=== PATIENT | male | born 1995 | race Caucasian/White ===

== ENCOUNTER 2024-12-11 12:01 | Emergency (ER) | payer MEDICAID, SELFPAY ==
[2024-12-11 12:09] VITALS: BP 115/74; PULSE 74; RESP 21; TEMP 36.7; O2SAT 100
--- NOTE | 2024-12-11 12:17 | XR_ITS ---
Examination: Lumbar spine 3 views Technique one AP lateral coned lateral lower lumbar spine 3 views Exam date and time: December 11, 2024 1223 hours INDICATIONS: Lower back pain beginning 4 days ago. FINDINGS: Lumbar dextroscoliosis 8 degrees No lumbar fracture Mild disc narrowing L4-L5, L5-S1 No spondylolisthesis IMPRESSION: Mild disc narrowing L4-L5, L5-S1
--- NOTE | 2024-12-11 12:19 | EDNOTE_ITS ---
ED Back Injury Pain RME/HPI General Chief Complaint: Back Pain/Injury Stated Complaint: BACK PAIN Time Seen by Provider: 12/11/24 12:15 Arrival date/time: 12/11/24 12:01 29 year old male present to emergency room via EMS with c/o of low back pain for 4 days. per EMS report [place] and unable to get up due to back pain, possible injury while playing soccer. No fevers No unexplained weight loss of night sweats No recent surgeries or recurrent bacterial infections Patient is not immunocompromised Denies any new focal neurological deficits or new motor weakness Denies bowel or bladder incontinence or saddle anesthesia LOCATION: diffuse low back SEVERITY: Symptoms are described as being severe with limitations on activities of daily living QUALITY: Symptoms are described as being dull or achy CONTEXT: The patient is unable to identify any inciting events. DURATION/TIMING: The symptoms started approximately 4 day ago and have been constant this then. ASSOCIATED SYMPTOMS: The patient is unable to identify any other associated symptoms. MODIFYING FACTORS: The patient is unable to identify any alleviating or aggravating symptoms. PERTINENT ROS: no fevers, denies any ripping or tearing sensations, no associated abdominal pain, no focal neurological deficits and denies any saddle anesthesia, and no bowel or bladder incontinence REVIEW OF SYSTEMS: See History of Present Illness - with the exception of those mentioned in the history of present illness, all other systems reviewed and reported as negative GENERAL: In general the patient is awake, interactive, in an emergency department rney. moderate pain HEAD/EYES/EARS/NOSE/THROAT: normo-cephalic, atraumatic, mucus membranes are moist, anicteric, palpebral conjunctiva is pink, trachea is midline. CARDIOVASCULAR: regular rate and regular rhythm, no murmurs, heart sounds are not distant, strong pulses in all four extremities that are equal and symmetric bilateral upper and lower extremities, normal capillary refill. CHEST/PULMONARY: normal chest rise and fall, good air movement, clear to auscultation bilaterally, normal inspiratory to expiratory ratios without evidence of respiratory distress. NECK: No midline/Paraspinal tenderness, no step off ROM/Strenght intact No Kernig and bruzinski sign. No trauma ABDOMEN: soft, not tender, no masses appreciated BACK: low back tenderness, no midline tenderness no step off normal range of motion without pain. NEUROLOGICAL: cranio-facial features are symmetric, moves all four extremities equally without obvious limitations or weakness. EXTREMITY: no tenderness to palpation over the long bones or large joints of the bilateral upper and lower extremities, no joint swelling, no joint erythema, no signs of trauma, no unilateral leg swelling and no peripheral edema. SKIN: warm, dry, well-perfused, no jaundice, no rash, no telangiectasias or petechia. PSYCH: calm, cooperative, no evidence of psychosis or agitation Related Data Previous Rx's ?Medication ?Instructions ?Recorded cyclobenzaprine 5 mg tablet 5 mg PO TID PRN muscle spa sm #30 12/11/24 tabs ibuprofen 800 mg tablet (IBU) 800 mg PO TID PRN fever or pain 12/11/24 #30 tabs Allergies Allergy/AdvReac Type Severity Reaction Status Date / Time No Known Allergies Allergy Verified 12/11/24 13:05 Course Course Course Narrative: basic labs , Xray, IV fluids, morphine, zofran toradol and recheck Quality Measures none Orders Category Date Time Status IV [Insert IV] STAT Care 12/11/24 12:16 Active Diet Regular Diet 12/11/24 Dinner Active XR lumbar spine 2-3V Stat Exams 12/11/24 13:32 Completed Alcohol, Blood Medical Stat Lab 12/11/24 12:31 Completed CBC Stat Lab 12/11/24 12:31 Completed CK [Creatine Kinase] Stat Lab 12/11/24 12:31 Completed CMP [Comprehensive Metabolic Panel] Stat Lab 12/11/24 12:31 Completed Drug Screen,Urine Stat Lab 12/11/24 12:17 Ordered Lactic Acid [Lactate (Lactic Acid)] Stat Lab 12/11/24 12:31 Completed Mag [Magnesium] Stat Lab 12/11/24 12:31 Completed UA [Urinalysis] Stat Lab 12/11/24 12:20 Ordered Ketorolac Inj [Toradol Inj] Med 12/11/24 12:19 Discontinued 30 mg IVP X1 ONE Lidocaine 5% Patch Med 12/11/24 13:43 Discontinued 1 patch TOP X1 ONE Morphine Inj Med 12/11/24 12:16 Discontinued 4 mg IVP X1 ONE Ondansetron Inj [Zofran Inj] Med 12/11/24 12:16 Discontinued 4 mg IV X1 ONE Sodium Chloride 0.9% 1000 ml [Ns] 1,000 ml Med 12/11/24 12:20 Discontinued IV 999 mls/hr Reevaluation(s) Reevaluation #1: pain has improved with pain medication review of labs and xray no acute findings Reevaluation #2: pt is feeling better. Vital Signs Vital signs: Vital Signs Temperature 98.1 F 12/11/24 12:09 Pulse Rate 74 12/11/24 12:09 Respiratory Rate 21 H 12/11/24 12:09 Blood Pressure 115/74 12/11/24 12:09 Pulse Oximetry (%) 100 12/11/24 12:09 Oxygen Delivery Method Room Air 12/11/24 12:09 Back Pain / Injury MDM Narrative MDM Narrative:: Patient is admitted to the Emergency Department and evaluated. Patient appears well, is non-toxic and well hydrated. Patient appears to have an uncomplicated lumbar lumbar strain. Pt. has no neurological deficits. No bowel or bladder dysfunction. Denies numbness in saddle region. Normal gait. No signs of cauda equina. Patient has no malignancy or other comorbidities. No signs of epidural abscess. No abdominal pain or pulsatile mass and has good peripheral pulses. I do not suspect AAA. Patient is given supportive home care instructions for rest, ice, use of NSAIDS, RX meds if indicated. Patient instructed to return to ER for any symptoms that are concerning to them. Patient data External records reviewed:: [facility] previous records Clinical information provided by:: patient Social determinants that could affect healthcare access:: substance use Patient has the following chronic illnesses:: n/a How is presenting disease/condition affected by chronic disease/condition?: no chronic disease Evaluation data The following diagnostics were reviewed and interpreted by me:: lab results, radiology exam(s) and EKG tracing(s) Lab and/or radiology exams considered but not ordered:: n/a Interpretation Summary: cbcwnl cmp wnl ck wnl lactic wnl trop wnl mg wnl urine drug screen xray: Lumbar dextroscoliosis 8 degrees No lumbar fracture Mild disc narrowing L4-L5, L5-S1 No spondylolisthesis IMPRESSION: Mild disc narrowing L4-L5, L5-S1 Medications / Prescriptions Medications or Prescriptions considered but not ordered:: n/a Medication administrations:: Medication Administration History Discontinued Medications Sodium Chloride (Ns) 1,000 mls @ 999 mls/hr IV .Q1H1M ONE Stop: 12/11/24 13:20 Last Admin: 12/11/24 13:02 Dose: 999 mls/hr Documented By: VIPUL Ketorolac Tromethamine (Ketorolac Inj 30 Mg/Ml Vial) 30 mg IVP X1 ONE Stop: 12/11/24 12:20 Last Admin: 12/11/24 13:03 Dose: 30 mg Documented By: VIPUL Lidocaine (Lidocaine 5% 1 Patch) 1 patch TOP X1 ONE Stop: 12/11/24 13:44 Last Admin: 12/11/24 14:38 Dose: 1 patch Documented By: RADHA Morphine Sulfate (Morphine Sulf Inj 10 Mg/Ml Vial) 4 mg IVP X1 ONE Stop: 12/11/24 12:17 Last Admin: 12/11/24 13:04 Dose: 4 mg Documented By: VIPUL Ondansetron HCl (Ondansetron Inj 2 Mg/Ml Inj 2 Ml) 4 mg IV X1 ONE; Protocol Stop: 12/11/24 12:17 Last Admin: 12/11/24 13:03 Dose: 4 mg Documented By: VIPUL as stated above Consultations Consultation(s) initiated? (list below): No Diagnosis Differential diagnosis back pain/injury: lumbar radiculopathy, sciatica, strain of lumbar region, renal colic, pyelonephritis, discitis and other (strain/sprain ) Most likely diagnosis given after review of the tests above:: lumbar strain Admission Indicated Admission indicated?: not indicated Admission Request Was there a request for admission?: No Disposition Plan Disposition Plan: Discharge Discharge Attestation Discharge Attestation: The patient and all family members were given an opportunity to ask questions and understood the discharge instructions. Discharge instructions specifically effects, indications for sooner follow up or return to the emergency department, and the expected course of current diagnosis. Patient condition: Stable Discharge Plan Plan Patient Disposition: HOME (Self Care) Health Concerns: Follow with PMD as directed Take tylenol or motrin as need Return to ED if sx worsen Prescriptions/Referrals Prescriptions/Med Rec: New cyclobenzaprine 5 mg tablet 5 mg PO TID PRN (Reason: muscle spasm) Qty: 30 0RF ibuprofen [IBU] 800 mg tablet 800 mg PO TID PRN (Reason: fever or pain) Qty: 30 0RF Referrals: No Primary/Family,Physician [Primary Care Provider] - In 1 week Problem List Clinical Impression: Strain of lumbar region Patient/Caregiver Discharge Instructions Education Materials: Self-Care for Strains and Sprains Print Language: Citizen Of [place] Stand Alone Forms: [employer] Award Info., Patient Portal Info Letter
--- NOTE | 2024-12-11 12:38 | PC.NURSE ---
Patient biba for back pain x4days, [place] team assisted in taking him out as patient was unable to ambulate per EMS. Patient is alert and oriented nonambulatory 2nd to back pain. Patient updated on plan of care and call light placed within reach.
[2024-12-11 12:46] LABS: Basophils % (Auto) 0 % (0-2.5); Eosinophils % (Auto) 0 % (0-10); Hematocrit 38.6 % (41.0-53.0); Hemoglobin 14.5 g/dL (13.5-16.0); Immature Granulocytes % (Auto) 0 % (0-0); Immature Granulocytes Auto 0.02 Thou/mm3 (0.00-0.00); Lymphocytes # (Auto) 0.8 Thou/mm3 (1.0-4.8); Lymphocytes % (Auto) 10 % (10-50); Mean Corpuscular HGB Conc 37.6 g/dl (31.0-37.0); Mean Corpuscular Hemoglobin 31.7 pg (25.0-35.0); Mean Corpuscular Volume 85 fL (80-100); Monocytes # (Auto) 0.5 Thou/mm3 (0.0-0.8); Monocytes % (Auto) 7 % (0-12); Neutrophils # (Auto) 6.7 Thou/mm3 (1.8-7.7); Neutrophils % (Auto) 83 % (37-80); Nucleated Red Blood Cell % 0 /100 WBC (0); Platelet Count 171 Thou/mm3 (140-440); RDW Standard Deviation 36.2 fL (35.1-43.9); Red Blood Count 4.57 Miln/mm3 (4.50-5.90); White Blood Count 8.1 Thou/mm3 (3.8-10.6)
[2024-12-11 12:58] VITALS: BMI 27.2
[2024-12-11] MEDS: SODIUM CHLORIDE 0.9% 1000 ML 1,000 ML 999 ML IV (13:02)
[2024-12-11] MEDS: KETOROLAC INJ 30 MG/ML VIAL IVP (13:03)
[2024-12-11] MEDS: ONDANSETRON INJ 2 MG/ML INJ 2 ML 4 MG IV (13:03)
[2024-12-11] MEDS: MORPHINE SULF INJ 10 MG/ML VIAL 4 MG IVP (13:04)
[2024-12-11 13:11] LABS: Alanine Aminotransferase 30 U/L (10-49); Albumin, Serum 4.7 gm/dL (3.5-5.0); Albumin/Globulin Ratio 1.5 (1.2-2.2); Alcohol, Blood Medical < 3.0 mg/dL (0-10.0); Alkaline Phosphatase 104 U/L (46-116); Anion Gap 10 (7-16); Aspartate Amino Transferase 28 U/L (0-34); BUN/Creatinine Ratio 12 Ratio (12-20); Bilirubin,Total 0.6 mg/dL (0.3-1.2); Blood Urea Nitrogen 13 mg/dL (9-23); Calcium 9.4 mg/dL (8.3-10.6); Calcium (Corrected) 9.4 mg/dL (8.5-10.1); Chloride 94 mMol/L (98-107); Creatine Kinase 152 U/L (34-171); Creatinine (Component) 1.1 mg/dL (0.6-1.3); Estimated Creatinine Clearance 103.2 mL/min (>60); Globulin 3.1 gm/dL (2.3-3.5); Glucose 98 mg/dL (74-106); Magnesium 2.1 mg/dL (1.6-2.6); Osmolality,Calculated 262 (275-295); Potassium 3.5 mMol/L (3.4-5.1); Sodium 131 mMol/L (136-145); Total Protein 7.8 gm/dL (5.7-8.2); eGFR > 60 See Note
[2024-12-11] MEDS: LIDOCAINE 5% 1 PATCH TOP (14:38)
[2024-12-11 16:58] VITALS: BP 118/70; PULSE 61; RESP 16; TEMP 37.4; O2SAT 100
--- NOTE | 2024-12-11 17:30 | PC.NURSE ---
Pt refused to urinate for labs
== END 2024-12-11 19:02 | disposition home or self-care (01) ==
PROVIDERS: Physician Assistant; Emergency Provider Emergency Medicine
DX: S39.012A Strain of muscle, fascia and tendon of lower back, initial encounter (principal); X58.XXXA Exposure to other specified factors, initial encounter
CPT/HCPCS: 36415; 72100; 80053; 80307; 80320; 81001; 82550; 83605; 83735; 85025; 96374; 96375; 99284; J1885; J2270; J2405; J3490; J7030; G0480

== ENCOUNTER 2025-02-16 19:58 | Emergency (ER) | payer MEDICAID, SELFPAY ==
[2025-02-16 20:03] VITALS: BP 180/84; PULSE 99; RESP 18; TEMP 37.2; O2SAT 94; BMI 28.4
--- NOTE | 2025-02-16 20:17 | PD.EDMEDCL ---
ED Medical Clearance RME/HPI General Chief complaint: Medical Clearance Stated complaint: MEDICAL CLEARANCE Time Seen by Provider: 02/16/25 20:18 Arrival date/time: 02/16/25 19:58 RME / HPI RME / HPI Narrative: This section includes all my notes and documentations, including HPI, PE, and ED course. Stephen Dillon MD HPI: 29 y/o male presents to ED BIB [facility] for medical clearance for incarceration. Patient was arrested for use of force with an officer. When arresting and hand-cuffing, he injured his left hand. He reports no pain. No other injury. No other complaints. ROS: All negative except as documented in HPI. Physical Exam: General:? Alert and oriented.? No acute distress.?? Eyes:? Conjunctivae and lids clear.? ENT:? No signs of head trauma. Neck:? Supple.? No tenderness. Heart:? RRR.? Lungs:? No respiratory distress.? Good air movement.? No rhonchi, wheezing, rales.?? Chest:? No tenderness. Abdomen:? Soft and nontender.? Normal bowel sounds.? No distension.? No rebound or guarding.?? Back:? No tenderness.?? Skin:? Warm and dry.??In the fourth distal phalanx, 0.5 cm linear skin abrasion noted. In the third middle phalanx, small punctate skin abrasion noted. Neuro:? Alert and oriented X 3.? Cranial Nerves II-XII grossly intact.? No peripheral motor deficits. Musculoskeletal:? All major joints and bones are not tender with no limited ROM.? At this point, diagnoses include Abrasion of left hand. Treatment here included Wound care, Keflex, Bacitracin, and Tdap. Provided wound care instructions. Based on my best medical judgment, made decision no further evaluation or treatment indicated at this time. Patient understands and agrees to the discharge instructions customized and printed, see below. Discharge Instructions from Dr. Dillon printed for you: 1. After evaluation, there is no evidence of any serious injury. Such as broken bone. 2. You sustained 2 abrasions in the left hand (3rd and 4th fingers). -- Keep the current dressing intact for 24 hours. -- After 24 hours, change the dressing once daily until full scabbing formed. -- First remove the dressing gently.? If it does not come off easily, run water through it until it comes off easily. -- Then gently wash with soap and water. -- After completely drying, apply antibiotic ointment and new dressing. -- Elevate above the heart level today and tomorrow as much as possible.? Placing the hand on the head is a good method. 3. Seek immediate medical care with fever, spreading redness from a wound, or with any concerns. Stephen Dillon MD Related Information Previous Rx's ?Medication ?Instructions ?Recorded cyclobenzaprine 5 mg tablet 5 mg PO TID PRN muscle spasm #30 12/11/24 tabs ibuprofen 800 mg tablet (IBU) 800 mg PO TID PRN fever or pain 12/11/24 #30 tabs Allergies Allergy/AdvReac Type Severity Reaction Status Date / Time No Known Allergies Allergy Verified 12/11/24 13:05 Review of Systems Review of Systems Systems Reviewed: All systems reviewed, normal except as documented Past Medical History Social History SMOKING STATUS: Current every day smoker ED Exam Narrative Physical exam: Refer to HPI above Course Quality Measures none Orders Category Date Time Status Wound Care [Wound Care] NOW Care 02/16/25 20:20 Active Bacitracin Oint pkt Med 02/16/25 20:19 Discontinued 1 gm TOP X1 ONE TET,DIP/PERT AC (Adult)-Tdap [Boostrix Adult (Tdap) Med 02/16/25 20:19 Discontinued Vacc] 0.5 ml IMI .ONCE ONE cephALEXin [Keflex] Med 02/16/25 20:19 Discontinued 1,000 mg PO X1 ONE Vital Signs Vital signs: Vital Signs Temperature 98.9 F 02/16/25 20:03 Pulse Rate 99 02/16/25 20:03 Respiratory Rate 18 02/16/25 20:03 Blood Pressure 180/84 H 02/16/25 20:03 Pulse Oximetry (%) 94 L 02/16/25 20:03 Oxygen Delivery Method Room Air 02/16/25 20:03 Medical Clearance MDM Narrative MDM Narrative:: Scribe Attestation: Matilde Hicks, am scribing for and in the presence of Dr. Dillon. Provider Notation: Although this document has been carefully reviewed, there may still be some phonetic and other typographical errors. These errors are purely grammatical due to imperfections in the software program and should not be construed in any way to compromise the substance of the patient's medical care during this visit. 29 y/o male presents to ED BIB [facility] requesting medical clearance due to left finger pain. Patient was arrested for use of force with an officer and when arresting and hand-cuffing, he injured his finger. No other complaints. Patient data External records reviewed:: [facility] previous records (Reviewed prior ED records from 12/11/24. Patient was seen for Strain of lumbar region.) and Other (specify) ([facility]) Clinical information provided by:: patient and law enforcement Social determinants that could affect healthcare access:: none Patient has the following chronic illnesses:: None reported How is presenting disease/condition affected by chronic disease/condition?: no chronic disease Evaluation data The following diagnostics were reviewed and interpreted by me:: other (specify) (N/A) Lab and/or radiology exams considered but not ordered:: None Interpretation Summary: No diagnostics ordered. Medications / Prescriptions Medications or Prescriptions considered but not ordered:: None Medication administrations:: Medication Administration History Discontinued Medications Bacitracin (Bacitracin Oint 1 Gm Packet) 1 gm TOP X1 ONE Stop: 02/16/25 20:20 Cephalexin HCl (Cephalexin 250 Mg Capsule) 1,000 mg PO X1 ONE Stop: 02/16/25 20:20 Diphtheria/Tetanus/Acell Pertussis (Diphth,Pertuss(Acell),Tet Vac 0.5 Ml Syr- Adult) 0.5 ml IMi .ONCE ONE Stop: 02/16/25 20:20 Keflex, Bacitracin, Tdap Consultations Consultation(s) initiated? (list below): No Diagnosis Medical Clearance Differential Diagnosis: other (Laceration, Abrasion, Contusion, Strain, fracture) Most likely diagnosis given after review of the tests above:: Abrasion of left hand Admission Indicated Admission indicated?: not indicated Explain why admission is indicated or not indicated:: With no serious injury, there was no indication for admission.? Admission Request Was there a request for admission?: No Disposition Plan Disposition Plan: Discharge (to [facility]) Discharge Attestation Discharge Attestation: The patient and all family members were given an opportunity to ask questions and understood the discharge instructions. Discharge instructions specifically effects, indications for sooner follow up or return to the emergency department, and the expected course of current diagnosis. Patient condition: Stable Discharge Plan Plan Patient Disposition: HOME (Self Care) Prescriptions/Referrals Prescriptions/Med Rec: No Action cyclobenzaprine 5 mg tablet 5 mg PO TID PRN (Reason: muscle spasm) Qty: 30 0RF ibuprofen [IBU] 800 mg tablet 800 mg PO TID PRN (Reason: fever or pain) Qty: 30 0RF Problem List Clinical Impression: Abrasion of hand, left Patient/Caregiver Discharge Instructions Discharge Activity: activity as tolerated Education Materials: ED Abrasions Additional Instructions: Discharge Instructions from Dr. Dillon printed for you: 1. After evaluation, there is no evidence of any serious injury. Such as broken bone. 2. You sustained 2 abrasions in the left hand (3rd and 4th fingers). -- Keep the current dressing intact for 24 hours. -- After 24 hours, change the dressing once daily until full scabbing formed. -- First remove the dressing gently.? If it does not come off easily, run water through it until it comes off easily. -- Then gently wash with soap and water. -- After completely drying, apply antibiotic ointment and new dressing. -- Elevate above the heart level today and tomorrow as much as possible.? Placing the hand on the head is a good method. 3. Seek immediate medical care with fever, spreading redness from a wound, or with any concerns. Print Language: [place] Stand Alone Forms: [employer] Award Info., Patient Portal Info Letter
== END 2025-02-16 20:36 | disposition home or self-care (01) ==
LOC: SERX 20:39
PROVIDERS: Emergency Provider Emergency Medicine
DX: Z02.89 Encounter for other administrative examinations (principal); S60.512A Abrasion of left hand, initial encounter; Y35.813A Legal intervention involving manhandling, suspect injured, initial encounter
CPT/HCPCS: 99282